=== PATIENT | female | born 1960 | race Two or more races ===

== ENCOUNTER 2023-07-18 06:47 | Outpatient (CLI) | payer OTHER ==
[2023-07-18 07:34] LABS: HEMOGLOBIN 13.5 g/dL (12.0-15.00); MEAN CELL VOLUME 84.2 fL (80.00-100.00); MEAN CORPUSCULAR HEMOGLOBIN 28.4 pg (27.00-32.0); MEAN CORPUSCULAR HGB CONC 33.8 g/dl (32.0-36.0); PLATELET COUNT 330 K/uL (150-450); RED BLOOD COUNT 4.75 M/uL (4.00-6.00); RED CELL DISTRIBUTION WIDTH 13.8 % (11.5-14.5)
[2023-07-18 07:38] LABS: URINE APPEARANCE Turbid; URINE BILIRRUBIN Negative (NEGATIVE); URINE BLOOD Negative; URINE COLOR Yellow; URINE GLUCOSE Negative (NEGATIVE); URINE LEUKOCYTE Small; URINE NITRATE Negative; URINE PROTEIN Negative (NEGATIVE); URINE UROBILINOGEN 0.2 E.U./dl
[2023-07-18 07:39] LABS: URINE BACTERIA 579.5 uL (0.0-1933); URINE EPITHELIAL CELLS 33.2 uL (0.0-38.8); URINE RBC 9.4 uL (0.0-20.8); URINE WBC 47.7 uL (0.0-23.2)
[2023-07-18 08:09] LABS: ALBUMIN 3.6 gm/dL (3.4-5.0); BILIRUBIN TOTAL 0.65 mg/dL (0.3-1.2); CALCIUM 9.5 mg/dL (8.5-10.1); CHOL HDL RATIO 4.6 (0-5.0); CREATININE SERUM 1.15 mg/dL (0.55-1.02); GFR 47.97; GLOBULINA 3.9 G/DL (2.4-3.5); POTASSIUM 4.64 mEq/L (3.5-5.1); T4 FREE 1.3 NG/ML (0.76-1.46); TOTAL PROTEIN 7.5 gm/dL (6.4-8.2); TSH 1.87 uIU/mL (0.358-3.74)
== END 2023-07-18 06:48 | disposition home or self-care (01) ==
LOC: LAB 06:47
DX: E11.9 Type 2 diabetes mellitus without complications (principal); B96.81 Helicobacter pylori [H. pylori] as the cause of diseases classified elsewhere; E03.8 Other specified hypothyroidism; I10 Essential (primary) hypertension; F34.9 Persistent mood [affective] disorder, unspecified; D55.9 Anemia due to enzyme disorder, unspecified; D58.9 Hereditary hemolytic anemia, unspecified; Z12.11 Encounter for screening for malignant neoplasm of colon; R97.8 Other abnormal tumor markers; R32 Unspecified urinary incontinence; N39.0 Urinary tract infection, site not specified; N95.1 Menopausal and female climacteric states; Z85.07 Personal history of malignant neoplasm of pancreas; D50.9 Iron deficiency anemia, unspecified; Z80.1 Family history of malignant neoplasm of trachea, bronchus and lung; Z80.41 Family history of malignant neoplasm of ovary; E04.2 Nontoxic multinodular goiter; M06.4 Inflammatory polyarthropathy; A64 Unspecified sexually transmitted disease; R19.07 Generalized intra-abdominal and pelvic swelling, mass and lump; R79.82 Elevated C-reactive protein (CRP); R78.89 Finding of other specified substances, not normally found in blood

== ENCOUNTER 2023-07-18 07:35 | Outpatient (CLI) | payer OTHER | END 2023-07-18 07:36 | disposition home or self-care (01) | LOC: SONOGRAMA 07:35 | DX: R10.9 Unspecified abdominal pain (principal) ==